=== PATIENT | male | born 1990 | race Hispanic/Latino ===

== ENCOUNTER 2018-02-22 11:41 | Emergency (ER) | payer OTHER ==
[~2018-02-22] VITALS: Ht 177.8 cm; Wt 106.1 kg
[2018-02-22 12:26] LABS: BASOPHILS % 0.4 % (0.0-1.0); EOSINOPHILS # (AUTO) 0.1 (0.0-0.4); HEMATOCRIT 45.7 % (38.2-49.6); HEMOGLOBIN 16.6 g/dL (14.0-18.0); LYMPHOCYTES # (AUTO) 2.7 (1.0-3.2); LYMPHOCYTES % 29.6 % (18.0-39.1); MEAN CORPUSCULAR HEMOGLOBIN 30.7 pg (28-32); MEAN CORPUSCULAR HGB CONC 36.3 g/dL (31-35); MEAN CORPUSCULAR VOLUME 84.5 fL (81-99); MONOCYTES # (AUTO) 0.5 (0.2-0.8); NEUTROPHILS # (AUTO) 5.7 (2.1-6.9); NEUTROPHILS % 62.7 % (38.7-80.0); PLATELET COUNT 185 x10e3/uL (140-360); RED BLOOD COUNT 5.41 x10e6/uL (4.3-5.7); RED CELL DISTRIBUTION WIDTH 12.6 % (11.7-14.4)
[2018-02-22 12:40] LABS: ALANINE AMINOTRANSFERASE 66 IU/L (0-55); ALBUMIN 4.4 g/dL (3.5-5.0); ALBUMIN/GLOBULIN RATIO 1.5 (0.8-2.0); ALKALINE PHOSPHATASE 81 IU/L (40-150); ANION GAP 15.6 mmol/L (8-16); BLOOD UREA NITROGEN 13 mg/dL (7-26); BUN/CREATININE RATIO 16 (6-25); CALCIUM 10.4 mg/dL (8.4-10.2); CARBON DIOXIDE 20 mmol/L (22-29); CHLORIDE 106 mmol/L (98-107); CREATININE, SERUM 0.83 mg/dL (0.72-1.25); EST GLOMERULAR FILTRATION RATE > 60 ML/MIN (60-); GLUCOSE 98 mg/dL (74-118); POTASSIUM 3.6 mmol/L (3.5-5.1); SODIUM 138 mmol/L (136-145)
[2018-02-22 12:48] LABS: AMPHETAMINES SCREEN,URINE NEGATIVE (NEGATIVE); BENZODIAZEPINES SCREEN,URINE NEGATIVE (NEGATIVE); PHENCYCLIDINE SCREEN,URINE NEGATIVE (NEGATIVE)
--- NOTE | 2018-02-22 13:08 | Diagnostic Imaging Report ---
Examination: CT head without contrast Clinical Indication: Syncope. Technique: Transaxial noncontrast images from the skull base through the vertex were obtained. Sagittal and coronal reformatted images were done. Dose modulation, iterative reconstruction, and/or weight based adjustment of the mA/kV was utilized to reduce the radiation dose to as low as reasonably achievable. Comparison: None. Findings: Scalp: No abnormalities. Bones: Intact. No fractures. No blastic or lytic lesions. Brain sulci: Appropriate for patient's age. Ventricles: Normal in size and configuration. No hydrocephalus. Extra-axial space: No abnormalities. Parenchyma: No abnormal densities. No masses, hemorrhage, or acute or chronic cortical based vascular insults. Suprasellar region: No abnormalities. Craniocervical junction: The foramen magnum is patent. No Chiari one malformation. Impression: Normal noncontrast head CT. Signed by: Dr. Sarah Knutson M.D. on 02/22/2018 1:05 PM
[2018-02-22] MEDS ORDERED: ACETAMINOPHEN 325 MG TAB PO ONE (13:45)
[2018-02-22 13:48] VITALS: BP 114/79
== END 2018-02-22 14:04 | disposition home or self-care (01) ==
LOC: ER 11:41
DX: R55 Syncope and collapse (principal); S00.83XA Contusion of other part of head, initial encounter; R51 Headache
CPT/HCPCS: 36415; 70450; 80053; 80307; 82948; 85025; 93005; 99284